=== PATIENT | male | born 1955 | race Two or more races ===

== ENCOUNTER 2018-06-13 21:43 | Emergency (ER) | payer OTHER ==
[~2018-06-13] VITALS: Ht 182.9 cm; Wt 106.1 kg
[2018-06-13] MEDS ORDERED: NOVOLIN 70100 UNIT/1 (22:36)
[2018-06-13] MEDS ORDERED: FORTAMET1000 MG (22:36)
[2018-06-13] MEDS ORDERED: LISINOPRIL40 MG (22:37)
[2018-06-13] MEDS ORDERED: GABAPENTIN600 MG (22:37)
[2018-06-13] MEDS ORDERED: AMLODIPINE BESY10 MG (22:37)
[2018-06-13] MEDS ORDERED: TRAMADOL HCL50 MG (22:38)
[2018-06-13] MEDS ORDERED: TAMS0.4C (22:38)
[2018-06-13] MEDS ORDERED: OMEPRAZOLE20 M1 (22:40)
[2018-06-13] MEDS ORDERED: ALPRAZOLAM2 MG (22:40)
[2018-06-13] MEDS ORDERED: TRAZODONE HCL100 MG (22:41)
[2018-06-14] MEDS ORDERED: KETO10TA2 PO (00:49)
[2018-06-14] MEDS ORDERED: ORPHENADRINE C100 MG PO (00:49)
[2018-06-14] MEDS ORDERED: AFRIN15 ML NASAL (00:52)
== END 2018-06-14 01:17 | disposition home or self-care (01) ==
LOC: ER 21:43
DX: M54.32 Sciatica, left side (principal)